=== PATIENT | female | born 1965 | race American Indian/Alaskan Native ===

== ENCOUNTER 2018-02-06 10:16 | Emergency (ER) | payer SELFPAY ==
[2018-02-06 10:28] VITALS: BP 163/80
[2018-02-06] MEDS ORDERED: ULTRAM PO ONE (12:01)
--- NOTE | 2018-02-06 12:07 | Emergency Department Report ---
ED Extremity Problem HPI - General Chief complaint: Extremity Injury, Lower Stated complaint: LT LEG PAIN Time Seen by Provider: 02/06/18 11:21 Source: patient Mode of arrival: Ambulatory Limitations: Physical Limitation - History of Present Illness Initial comments: 52-year-old female with recent CVA last month presents with left leg pain. States she has been experiencing pain in left thigh and lower leg since her stroke 4 weeks ago. Patient reports left-sided weakness and numbness secondary to her stroke. States pain and leg is sharp, intermittent. Pain is worse with ambulation, movement of extremities. No swelling. Patient reports that followed up with anyone on an outpatient basis since her stroke last month. MD Complaint: extremity pain -: month(s) (1) Location: left, lower extremity History of Same: No Radiation: none Quality: sharp Consistency: intermittent Improves with: rest Worsens with: weight bearing, palpation, other (movement) Associated Symptoms: denies: chest pain, shortness of breath - Related Data Home Medications Medication Instructions Recorded Confirmed Last Taken Baclofen [Lioresal] 10 mg PO QDAY 12/26/17 12/26/17 Unknown Fenofibrate 160 mg PO QDAY 12/26/17 12/26/17 Unknown Gabapentin [Neurontin] 300 mg PO QDAY 12/26/17 12/26/17 Unknown Naproxen [Naprosyn] 500 mg PO QDAY PRN 12/26/17 12/26/17 Unknown Gera/Polymyx B/Dexam Ophth Susp 1 drop OTIC BID 12/26/17 12/26/17 Unknown [Maxitrol Susp 3.5mg/23166simvp/0.1%] Ponatinib HCl [Iclusig] 15 mg PO QDAY 12/26/17 12/26/17 Unknown diphenhydrAMINE [Benadryl CAP] 50 mg PO HS 12/26/17 12/26/17 Unknown Previous Rx's Medication Instructions Recorded Last Taken Type Amlodipine Besylate [Norvasc] 10 mg PO QDAY #30 tablet 12/26/17 Unknown Rx Aspirin [Adult Aspirin] 81 mg PO QDAY #30 tablet. 12/26/17 Unknown Rx Clopidogrel [Plavix] 75 mg PO QDAY #30 tablet 12/26/17 Unknown Rx Simvastatin [Zocor TAB] 40 mg PO QHS #30 tablet 12/26/17 Unknown Rx Valsartan [Diovan] 160 mg PO BID #60 tablet 12/26/17 Unknown Rx Allergies Allergy/AdvReac Type Severity Reaction Status Date / Time No Known Allergies Allergy Verified 02/06/18 10:23 ED Review of Systems ROS: Stated complaint: LT LEG PAIN Other details as noted in HPI Constitutional: denies: fever Cardiovascular: denies: chest pain Musculoskeletal: as per HPI, other (denies leg swelling) ED Past Medical Hx - Past Medical History Hx Hypertension: Yes Hx CVA: Yes (dec 29) Hx Diabetes: Yes Additional medical history: leukemia - Surgical History Past Surgical History?: No - Social History Smoking Status: Never Smoker Substance Use Type: None - Medications Home Medications: Home Medications Medication Instructions Recorded Confirmed Last Taken Type Amlodipine Besylate [Norvasc] 10 mg PO QDAY #30 tablet 12/26/17 Unknown Rx Aspirin [Adult Aspirin] 81 mg PO QDAY #30 tablet. 12/26/17 Unknown Rx Baclofen [Lioresal] 10 mg PO QDAY 12/26/17 12/26/17 Unknown History Clopidogrel [Plavix] 75 mg PO QDAY #30 tablet 12/26/17 Unknown Rx Fenofibrate 160 mg PO QDAY 12/26/17 12/26/17 Unknown History Gabapentin [Neurontin] 300 mg PO QDAY 12/26/17 12/26/17 Unknown History Naproxen [Naprosyn] 500 mg PO QDAY PRN 12/26/17 12/26/17 Unknown History Gera/Polymyx B/Dexam Ophth Susp 1 drop OTIC BID 12/26/17 12/26/17 Unknown History [Maxitrol Susp 3.5mg/71393wyoln/0.1%] Ponatinib HCl [Iclusig] 15 mg PO QDAY 12/26/17 12/26/17 Unknown History Simvastatin [Zocor TAB] 40 mg PO QHS #30 tablet 12/26/17 Unknown Rx Valsartan [Diovan] 160 mg PO BID #60 tablet 12/26/17 Unknown Rx diphenhydrAMINE [Benadryl CAP] 50 mg PO HS 12/26/17 12/26/17 Unknown History ED Physical Exam - General Limitations: Physical Limitation General appearance: alert, in no apparent distress - Head Head exam: Present: atraumatic, normocephalic - Eye Eye exam: Present: normal appearance - ENT ENT exam: Present: mucous membranes moist - Respiratory Respiratory exam: Present: normal lung sounds bilaterally. Absent: respiratory distress - Cardiovascular Cardiovascular Exam: Present: regular rate, normal rhythm - GI/Abdominal GI/Abdominal exam: Present: soft. Absent: distended - Extremities Exam Extremities exam: Present: other (moderate tenderness to left thigh, minimal tenderness to left lower leg; no edema or swelling noted; cap refill nml; DP pulse palpable and normal; foot/toes are warm) - Neurological Exam Neurological exam: Present: alert, oriented X3, motor sensory deficit (baseline left sided deficits) - Psychiatric Psychiatric exam: Present: normal affect, normal mood - Skin Skin exam: Present: warm, dry, intact, normal color ED Course Vital Signs 02/06/18 10:25 Temperature 98.7 F Pulse Rate 98 H Respiratory 22 Rate Blood Pressure 163/80 O2 Sat by Pulse 96 Oximetry - Reevaluation(s) Reevaluation #1: 02/06/18 13:13 Spoke w/ automotive service technician, Raj. Study negative for DVT. ED Medical Decision Making - Radiology Data Radiology results: report reviewed - Medical Decision Making 52-year-old female with left leg pain following a stroke last month. Patient has deficits on the left side. Is likely experiencing neuropathic pain. Venous Doppler ultrasound negative for DVT. Patient to follow up as outpatient. Prescription given for Ultram. - Differential Diagnosis DVT, neuropathy Critical care attestation.: If time is entered above; I have spent that time in minutes in the direct care of this critically ill patient, excluding procedure time. ED Disposition Clinical Impression: Neuropathy Disposition: DC-01 TO HOME OR SELFCARE Is pt being admited?: No Condition: Stable Instructions: Peripheral Neuropathy (ED) Referrals: GIANFRANCO JAIME [Other] - 3-5 Days [facility] [Provider Group] - 3-5 Days Time of Disposition: 13:13
== END 2018-02-06 13:35 | disposition home or self-care (01) ==
LOC: ED 10:16
DX: E11.40 Type 2 diabetes mellitus with diabetic neuropathy, unspecified (principal); I10 Essential (primary) hypertension; Z86.73 Personal history of transient ischemic attack (TIA), and cerebral infarction without residual deficits; Z79.899 Other long term (current) drug therapy

== ENCOUNTER 2018-06-30 11:18 | Emergency (ER) | payer OTHER, SELFPAY ==
[2018-06-30 11:45] VITALS: BP 157/78
--- NOTE | 2018-06-30 11:45 | Emergency Department Report ---
Blank Doc - Documentation Documentation: This is a 52-year-old female that presents with bilateral knee pains s/p fall. Patient stated that her knees gives out after previous stroke. Deneis any stroke symptoms. Exam: normal neuro exam. No facial drooping. no one sided weakness. This initial assessment/diagnostic orders/clinical plan/treatment(s) is/are subject to change based on patient's health status, clinical progression and re- assessment by fellow clinical providers in the ED. Further treatment and workup at subsequent clinical providers discretion. Patient/guardians urged not to elope from the ED as their condition may be serious if not clinically assessed and managed. Initial orders include: 1- Patient sent to [facility] for further evaluation and treatment 2- xray
[2018-06-30] MEDS ORDERED: ZOFRAN IV ONE (13:43)
[2018-06-30] MEDS ORDERED: PEPCID IV ONE (13:43)
[2018-06-30] MEDS ORDERED: NACL 0.9% 1000 ML 1,000 ML IV ONE (13:43)
--- NOTE | 2018-06-30 13:50 | XRay Report ---
BILATERAL KNEES, 3 VIEWS History: Bilateral knee pain after fall. Findings: There is normal bone mineralization. No evidence for fracture, significant joint pathology or joint effusion. No bone lesion. Impression: Unremarkable bilateral knees.
[2018-06-30 15:10] LABS: BUN/Creatinine Ratio 20; Basophils # (Auto) 0.1 K/mm3 (0.0-0.1); Basophils % (Auto) 0.6 % (0.0-1.8); Blood Urea Nitrogen 10 mg/dL (7-17); Calcium 9.5 mg/dL (8.4-10.2); Eosinophils # (Auto) 0.1 K/mm3 (0.0-0.4); Eosinophils % (Auto) 1.1 % (0.0-4.3); Hematocrit 41.1 % (30.3-42.9); Hemoglobin 13.9 gm/dl (10.1-14.3); Hemolysis Index 7; Lymphocytes # (Auto) 1.4 K/mm3 (1.2-5.4); Lymphocytes % (Auto) 13.4 % (13.4-35.0); Mean Corpuscular HGB Conc 34 % (30-34); Mean Corpuscular Volume 80 fl (79-97); Monocytes # (Auto) 0.5 K/mm3 (0.0-0.8); Monocytes % (Auto) 4.8 % (0.0-7.3); Platelet Count 176 K/mm3 (140-440); Red Blood Count 5.13 M/mm3 (3.65-5.03); Red Cell Distribution Width 14.4 % (13.2-15.2)
--- NOTE | 2018-06-30 15:10 | XRay Report ---
AP ABDOMEN: HISTORY: Nausea and vomiting without BM in days. The abdominal gas pattern is unremarkable. No masses or organomegaly is identified and there is no gross evidence of free air or fluid. No significant soft tissue calcifications are noted. IMPRESSION: Unremarkable abdomen.
--- NOTE | 2018-06-30 16:31 | Emergency Department Report ---
ED General Adult HPI - General Chief complaint: Fall Stated complaint: FALL INJURY/KNEE PAIN Time Seen by Provider: 06/30/18 11:42 Source: patient Mode of arrival: Ambulatory Limitations: No Limitations - History of Present Illness Initial comments: Patient is a 52-year-old female who is presenting status post fall. Patient has a history of CVA and walks with a walker. Patient also has a past medical history diabetes and hypertension. Patient states that 2 days ago she began to have some nausea and vomiting. Patient states she has not had a bowel movement in several days as well. Patient has not been able to eat. Patient states she was walking to the bathroom today and was with without oral walker and her legs gave out. Patient states she felt dizzy at the time felt as though she'll pass out however she did not lose consciousness. Patient is denying any chest pain shortness of breath fevers chills nausea vomiting cur rently or focal neurological deficit. - Related Data Home Medications Medication Instructions Recorded Confirmed Last Taken Baclofen [Lioresal] 10 mg PO QDAY 12/26/17 12/26/17 Unknown Fenofibrate 160 mg PO QDAY 12/26/17 12/26/17 Unknown Gabapentin [Neurontin] 300 mg PO QDAY 12/26/17 12/26/17 Unknown Naproxen [Naprosyn] 500 mg PO QDAY PRN 12/26/17 12/26/17 Unknown Gera/Polymyx B/Dexam Ophth Susp 1 drop OTIC BID 12/26/17 12/26/17 Unknown [Maxitrol Susp 3.5mg/96707vwbcz/0.1%] Ponatinib HCl [Iclusig] 15 mg PO QDAY 12/26/17 12/26/17 Unknown diphenhydrAMINE [Benadryl CAP] 50 mg PO HS 12/26/17 12/26/17 Unknown Previous Rx's Medication Instructions Recorded Last Taken Type Amlodipine Besylate [Norvasc] 10 mg PO QDAY #30 tablet 12/26/17 Unknown Rx Aspirin [Adult Aspirin] 81 mg PO QDAY #30 tablet. 12/26/17 Unknown Rx Clopidogrel [Plavix] 75 mg PO QDAY #30 tablet 12/26/17 Unknown Rx Simvastatin [Zocor TAB] 40 mg PO QHS #30 tablet 12/26/17 Unknown Rx Valsartan [Diovan] 160 mg PO BID #60 tablet 12/26/17 Unknown Rx Allergies Allergy/AdvReac Type Severity Reaction Status Date / Time No Known Allergies Allergy Verified 02/06/18 10:23 ED Review of Systems ROS: Stated complaint: FALL INJURY/KNEE PAIN Other details as noted in HPI Comment: All other systems reviewed and negative ED Past Medical Hx - Past Medical History Previous Medical History?: Yes Hx Hypertension: Yes Hx CVA: Yes (dec 29) Hx Diabetes: Yes Additional medical history: leukemia - Surgical History Past Surgical History?: No - Social History Smoking Status: Unknown if ever smoked Substance Use Type: None - Medications Home Medications: Home Medications Medication Instructions Recorded Confirmed Last Taken Type Amlodipine Besylate [Norvasc] 10 mg PO QDAY #30 tablet 12/26/17 Unknown Rx Aspirin [Adult Aspirin] 81 mg PO QDAY #30 tablet. 12/26/17 Unknown Rx Baclofen [Lioresal] 10 mg PO QDAY 12/26/17 12/26/17 Unknown History Clopidogrel [Plavix] 75 mg PO QDAY #30 tablet 12/26/17 Unknown Rx Fenofibrate 160 mg PO QDAY 12/26/17 12/26/17 Unknown History Gabapentin [Neurontin] 300 mg PO QDAY 12/26/17 12/26/17 Unknown History Naproxen [Naprosyn] 500 mg PO QDAY PRN 12/26/17 12/26/17 Unknown History Gera/Polymyx B/Dexam Ophth Susp 1 drop OTIC BID 12/26/17 12/26/17 Unknown History [Maxitrol Susp 3.5mg/82466vkrih/0.1%] Ponatinib HCl [Iclusig] 15 mg PO QDAY 12/26/17 12/26/17 Unknown History Simvastatin [Zocor TAB] 40 mg PO QHS #30 tablet 12/26/17 Unknown Rx Valsartan [Diovan] 160 mg PO BID #60 tablet 12/26/17 Unknown Rx diphenhydrAMINE [Benadryl CAP] 50 mg PO HS 12/26/17 12/26/17 Unknown History ED Physical Exam - General Limitations: No Limitations General appearance: alert, in no apparent distress - Head Head exam: Present: atraumatic, normocephalic - Eye Eye exam: Present: normal appearance, PERRL, EOMI - ENT ENT exam: Present: mucous membranes dry. Absent: mucous membranes moist - Neck Neck exam: Present: normal inspection - Respiratory Respiratory exam: Present: normal lung sounds bilaterally. Absent: respiratory distress, wheezes, rales, rhonchi - Cardiovascular Cardiovascular Exam: Present: normal rhythm, tachycardia, normal heart sounds. Absent: systolic murmur, diastolic murmur, rubs, gallop - GI/Abdominal GI/Abdominal exam: Present: soft, normal bowel sounds. Absent: distended, tenderness, guarding, rebound, rigid - Extremities Exam Extremities exam: Present: normal inspection - Back Exam Back exam: Present: normal inspection - Neurological Exam Neurological exam: Present: alert, oriented X3 - Psychiatric Psychiatric exam: Present: normal affect, normal mood - Skin Skin exam: Present: warm, dry, intact, normal color. Absent: rash ED Course Vital Signs 06/30/18 11:42 Temperature 97.9 F Pulse Rate 107 H Respiratory 18 Rate Blood Pressure 157/78 O2 Sat by Pulse 98 Oximetry ED Medical Decision Making - Lab Data Result diagrams: 06/30/18 14:26 06/30/18 14:26 Lab Results 06/30/18 06/30/18 Range/Units 14:26 14:26 WBC 10.7 (4.5-11.0) K/mm3 RBC 5.13 H (3.65-5.03) M/mm3 Hgb 13.9 (10.1-14.3) gm/dl Hct 41.1 (30.3-42.9) % MCV 80 (79-97) fl MCH 27 L (28-32) pg MCHC 34 (30-34) % RDW 14.4 (13.2-15.2) % Plt Count 176 (140-440) K/mm3 Lymph % (Auto) 13.4 (13.4-35.0) % Bull[place] % (Auto) 4.8 (0.0-7.3) % Eos % (Auto) 1.1 (0.0-4.3) % Baso % (Auto) 0.6 (0.0-1.8) % Lymph # 1.4 (1.2-5.4) K/mm3 Bullitt # 0.5 (0.0-0.8) K/mm3 Eos # 0.1 (0.0-0.4) K/mm3 Baso # 0.1 (0.0-0.1) K/mm3 Seg Neutrophils % 80.1 H (40.0-70.0) % Seg Neutrophils # 8.6 H (1.8-7.7) K/mm3 Sodium 140 (137-145) mmol/L Potassium 4.3 (3.6-5.0) mmol/L Chloride 102.5 (98-107) mmol/L Carbon Dioxide 25 (22-30) mmol/L Anion Gap 17 mmol/L BUN 10 (7-17) mg/dL Creatinine 0.5 L (0.7-1.2) mg/dL Estimated GFR > 60 ml/min BUN/Creatinine Ratio 20 % Glucose 213 H (65-100) mg/dL Calcium 9.5 (8.4-10.2) mg/dL - Medical Decision Making Patient was hydrated and given nausea medicine patient actually states she does feel much improved. Patient be discharged home. Patient had x-ray of abdomen which ruled out obstructive process. Patient may have had a viral gastritis or some stomach irritation secondary to something that she Z. Critical care attestation.: If time is entered above; I have spent that time in minutes in the direct care of this critically ill patient, excluding procedure time. ED Disposition Clinical Impression: Dehydration Gastritis Qualifiers: Gastritis type: unspecified gastritis Chronicity: acute Gastritis bleeding: with bleeding Qualified Code(s): K29.01 - Acute gastritis with bleeding Disposition: TO HOME OR SELFCARE Is pt being admited?: No Does the pt Need Aspirin: No Condition: Stable Instructions: Dehydration (ED) Referrals: RENNY SINGER MD [Primary Care Provider] - 3-5 Days Time of Disposition: 16:30
== END 2018-06-30 16:51 | disposition home or self-care (01) ==
LOC: ED 11:18
DX: K29.01 Acute gastritis with bleeding (principal); E86.0 Dehydration; I10 Essential (primary) hypertension; E11.9 Type 2 diabetes mellitus without complications; Z86.73 Personal history of transient ischemic attack (TIA), and cerebral infarction without residual deficits; Z79.899 Other long term (current) drug therapy
CPT/HCPCS: 36415; 73562; 74018; 80048; 85025; 96361; 96374; 96375; 99284; J2405; J7030

== ENCOUNTER 2018-07-22 13:18 | Emergency (ER) | payer OTHER, SELFPAY ==
[2018-07-22 13:26] VITALS: BP 171/99
--- NOTE | 2018-07-22 13:31 | Emergency Department Report ---
Blank Doc - Documentation Documentation: 52 y o female with hx of DM on insulin, Stroke 2017 was sent here by PCP today for mouth numbness she was told to come to ED for MRI because she may ahve had a stroke july 12 She denies any sx today FAST exam negative labs ordered
[2018-07-22 14:24] LABS: Basophils % (Auto) 0.3 % (0.0-1.8); Eosinophils # (Auto) 0.2 K/mm3 (0.0-0.4); Eosinophils % (Auto) 2.2 % (0.0-4.3); Hematocrit 41.5 % (30.3-42.9); Hemoglobin 14.3 gm/dl (10.1-14.3); Lymphocytes # (Auto) 1.8 K/mm3 (1.2-5.4); Mean Corpuscular HGB Conc 34 % (30-34); Mean Corpuscular Volume 81 fl (79-97); Monocytes # (Auto) 0.7 K/mm3 (0.0-0.8); Monocytes % (Auto) 7.9 % (0.0-7.3); Platelet Count 139 K/mm3 (140-440); Red Blood Count 5.15 M/mm3 (3.65-5.03); Red Cell Distribution Width 14.9 % (13.2-15.2)
[2018-07-22 14:34] LABS: BUN/Creatinine Ratio 20; Blood Urea Nitrogen 12 mg/dL (7-17); Calcium 9.9 mg/dL (8.4-10.2); Hemolysis Index 7
--- NOTE | 2018-07-22 19:44 | Emergency Department Report ---
HPI - General Chief Complaint: Weakness Time Seen by Provider: 07/22/18 13:22 - HPI HPI: HPI Patient is a 52-year-old female that presents to the emergency room after being seen at the [facility] where she presented with numbness around her mouth. She states that it has been coming and going since 61 of this year. She also states that shes been having intermittent chest pain that radiates down her left arm. On admission the patients vital signs were stable blood pressure was 171/99 her heart rate was 94 and her oxygen saturation on room air was 99. She had no noted focal neuro deficit. She states that she has not noticed anything that makes her symptoms better or worse. Patient appears much older than stated age. Past medical history -CVA in December she was seen here and dc home after her ER visit because I dont have insurance. They told me I needed PT but I was never able to get it. She did follow up with [facility] who has placed her on her med regimen. -obesity -DM -HTN -HPLD -leukemia- details unknown -GERD Home medications Norvasc Asa Plavix Fenofibrate Guru Naproxen Eye drops Iclusig Zocor Diovan Pepcid Zofran insulin Past surgeries none Denies previous ND; she states she has had a stress test numerous years ago at [facility] Past Medical Hx - Past Medical History Previous Medical History?: Yes Hx Hypertension: Yes Hx CVA: Yes (dec 2017) Hx Heart Attack/AMI: No Hx Congestive Heart Failure: No Hx Diabetes: Yes Hx Deep Vein Thrombosis: No Hx Pulmonary Embolism: No Hx GERD: Yes Hx of Cancer: Yes Additional medical history: leukemia - Surgical History Past Surgical History?: No - Family History Family history: hypertension - Social History Smoking Status: Never Smoker Substance Use Type: None - Medications Home Medications: Home Medications Medication Instructions Recorded Confirmed Last Taken Type Amlodipine Besylate [Norvasc] 10 mg PO QDAY #30 tablet 12/26/17 Unknown Rx Aspirin [Adult Aspirin] 81 mg PO QDAY #30 tablet. 12/26/17 Unknown Rx Clopidogrel [Plavix] 75 mg PO QDAY #30 tablet 12/26/17 Unknown Rx Fenofibrate 160 mg PO QDAY 12/26/17 12/26/17 Unknown History Gabapentin [Neurontin] 300 mg PO QDAY 12/26/17 12/26/17 Unknown History Naproxen [Naprosyn] 500 mg PO QDAY PRN 12/26/17 12/26/17 Unknown History Gera/Polymyx B/Dexam Ophth Susp 1 drop OTIC BID 12/26/17 12/26/17 Unknown History [Maxitrol Susp 3.5mg/75731daieu/0.1%] Ponatinib HCl [Iclusig] 15 mg PO QDAY 12/26/17 12/26/17 Unknown History Simvastatin [Zocor TAB] 40 mg PO QHS #30 tablet 12/26/17 Unknown Rx Valsartan [Diovan] 160 mg PO BID #60 tablet 12/26/17 Unknown Rx diphenhydrAMINE [Benadryl CAP] 50 mg PO HS 12/26/17 12/26/17 Unknown History Famotidine [Pepcid] 40 mg PO QHS #10 tablet 06/30/18 Unknown Rx Ondansetron [Zofran Odt] 4 mg PO Q8HR #10 tab.rapdis 06/30/18 Unknown Rx ED Review of Systems ROS: Stated complaint: NUMBNESS/LEG WEAKNESS Other details as noted in HPI Comment: All other systems reviewed and negative Physical Exam - Physical Exam Vital Signs: Vital Signs 07/22/18 13:24 Temperature 98.2 F Pulse Rate 94 H Respiratory 18 Rate Blood Pressure 171/99 O2 Sat by Pulse 99 Oximetry Physical Exam: Physical exam WDWN patient in NAD. She is much older than stated age. VS per RN flow sheet Alert and oriented to person, place and time. She has no pronator drift. She is ambulatory with a rolling walker S1-S2. No S3 or S4. No systolic or diastolic murmur. No JVD. No pitting edema. Lungs clear to auscultation bilaterally anteriorly and posteriorly. Abdomen soft nontender bowel sounds X4 Moves all extremities well Mood and affect appropriate. ED Course Vital Signs 07/22/18 13:24 Temperature 98.2 F Pulse Rate 94 H Respiratory 18 Rate Blood Pressure 171/99 O2 Sat by Pulse 99 Oximetry - Reevaluation(s) Reevaluation #1: 07/23/18 01:15 see down time documentation Reevaluation #2: 07/23/18 01:40 DR STORY HAS EVALUATED PT AND SHE IS OK FOR DC WITH FOLLOW UP WITH CARDIOLOGY ED Medical Decision Making - Lab Data Result diagrams: 07/22/18 13:46 07/22/18 13:46 - EKG Data EKG shows normal: sinus rhythm - EKG Data Interpretation: no acute changes - Radiology Data Radiology results: report reviewed, image reviewed - Medical Decision Making Differential diagnosis Ro TIA; CVA; ACS Medical decision making Interventions Labs trop x 2 neg Serial 12 lead no STEMI Chest xray- Head CT- see report [id number] Story- he will see and evaluate the patient. Labs 07/22/18 07/22/18 13:46 13:46 WBC 8.9 RBC 5.15 H Hgb 14.3 Hct 41.5 MCV 81 MCH 28 MCHC 34 RDW 14.9 Plt Count 139 L Lymph % (Auto) 20.0 Grant % (Auto) 7.9 H Eos % (Auto) 2.2 Baso % (Auto) 0.3 Lymph # 1.8 Grant # 0.7 Eos # 0.2 Baso # 0.0 Seg Neutrophils % 69.6 Seg Neutrophils # 6.2 Sodium 142 Potassium 4.2 Chloride 103.1 Carbon Dioxide 25 Anion Gap 18 BUN 12 Creatinine 0.6 L Estimated GFR > 60 BUN/Creatinine Ratio 20 Glucose 126 H Calcium 9.9 Magnesium 1.80 Vital Signs 07/22/18 13:24 Temperature 98.2 F Pulse Rate 94 H Respiratory 18 Rate Blood Pressure 171/99 O2 Sat by Pulse 99 Oximetry - Differential Diagnosis RO CVA/TIA/ACS Critical care attestation.: If time is entered above; I have spent that time in minutes in the direct care of this critically ill patient, excluding procedure time. ED Disposition Clinical Impression: Chest pain Disposition: - TO HOME OR SELFCARE Is pt being admited?: No Does the pt Need Aspirin: No Condition: Stable Instructions: Costochondritis (ED) Additional Instructions: DIET TOLERATED MEDS ORDERED TODAY IN ER FOLLOW INSTRUCTIONS ON THE BOTTLE FOLLOW UP PCP WITHIN 48 HOURS TO ENSURE YOU ARE GETTING BETTER ACTIVITY TOLERATED MOTRIN OR TYLENOL FOR PAIN OR FEVER RETURN TO THE ER FOR WORSENING SYMPTOMS NOT RELIEVED BY YOUR MEDICATIONS. Referrals: RENNY SINGER MD [Primary Care Provider] - 3-5 Days FABIO NUNEZ MD [Staff Physician] - 3-5 Days ILDA POOLE MD [Staff Physician] - 3-5 Days Time of Disposition: 01:21
[2018-07-23] MEDS ORDERED: MAGNESIUM SULFATE 2GM/50ML 2 GM/50 ML BAG IV ONE (01:06)
--- NOTE | 2018-07-23 01:44 | XRay Report ---
PROCEDURE: XR CHEST ROUTINE 2V TECHNIQUE: PA and lateral chest radiographs were obtained. HISTORY: chest pain COMPARISONS: None. FINDINGS: Heart: Normal. Mediastinum/Vessels: Normal. Lungs/Pleural space: Normal. Bony thorax: No acute osseous abnormality. IMPRESSION: Normal examination. This document is electronically signed by Feroz Gan MD., July 23 2018 01:42:40 AM ET
--- NOTE | 2018-07-23 01:51 | Cat Scan Report ---
PROCEDURE: CT HEAD/BRAIN WO CON TECHNIQUE: Computerized tomography of the head was performed without contrast material. CT DOSE LENGTH PRODUCT: 920.5 mGycm HISTORY: face weak COMPARISONS: None . FINDINGS: Brain: There is no evidence of intracranial hemorrhage. No parenchymal hemorrhage is seen. No mass lesions or mass effect is identified. No abnormal extra-axial fluid collections or masses are seen. Well-defined areas of decreased density in the right thalamus, right and left basal ganglia and in th e periventricular white matter. Some of these are new since the prior study however the well-defined nature suggests these are mature. Multiple mature lacunar infarcts appear to be present. There is some decreased density seen in the periventricular white matter without mass effect. This i s fairly symmetric and does not exhibit any mass effect consistent with gliosis probably on the basis of microvascular disease or white matter changes of aging. Ventricles: The ventricles are normal size and are midline.. Bone Windows: No evidence of fracture. Paranasal sinuses: Visualized portions are clear. Mastoid air cells: Clear. IMPRESSION: Multiple mature lacunar infarcts appear to be visualized. Some of these lacunar infarcts appear to be new since the prior exam although now appear mature.. There are also appears to be mild gliosis. No other abnormalities are seen. If clinically indicated MRI of the brain could be obtained which may help to characterize the above-m entioned lacunar infarcts further.. This document is electronically signed by Bishop Garcia MD., July 22 2018 08:26:52 PM ET
[2018-07-23] MEDS ORDERED: MAG-OX PO STA (01:54)
--- NOTE | 2018-07-23 02:17 | Event Note ---
Date: 07/23/18 C/o L Chest pain 2 to 3 months Also numbness perioral O/e Chest wall tenderness present no focal deficits A/p Costochondritis F/u [facility]-- Dr Lopez
[2018-07-23 16:12] LABS: BUN/Creatinine Ratio 26; Blood Urea Nitrogen 13 mg/dL (7-17); Calcium 10.1 mg/dL (8.4-10.2); Hemolysis Index 10
== END 2018-07-23 01:50 | disposition home or self-care (01) ==
LOC: ED 13:18
DX: R07.89 Other chest pain (principal); R20.0 Anesthesia of skin; I10 Essential (primary) hypertension; E11.9 Type 2 diabetes mellitus without complications; K21.9 Gastro-esophageal reflux disease without esophagitis; Z86.73 Personal history of transient ischemic attack (TIA), and cerebral infarction without residual deficits; Z79.4 Long term (current) use of insulin
CPT/HCPCS: 36415; 70450; 71046; 80048; 83735; 84484; 85025; 93005; 93010

== ENCOUNTER 2020-07-19 14:06 | Emergency (ER) | payer MEDICARE ==
--- NOTE | 2020-07-19 16:17 | Event Note ---
ED Screening Note Date of service: 07/19/20 Time: 16:12 ED Screening Note: 54-year-old female with a past medical history of hypertension presents to the ER today with complaints of elevated blood sugar, nausea, vomiting, generalized weakness for 1 week. This initial assessment/diagnostic orders/clinical plan/treatment(s) is/are subject to change based on patients health status, clinical progression and re- assessment by fellow clinical providers in the ED. Further treatment and workup at subsequent clinical providers discretion. Patient/guardian urged not to elope from the ED as their condition may be serious if not clinically assessed and managed. Initial orders include: labs/ua/ekg/cxr
[2020-07-19 17:13] LABS: Amorphous Crystals,Urine Few; Bacteria,Urine 2+ /HPF (Negative); Bilirubin,Urine NEG (Negative); Blood,Urine LG (Negative); Color,Urine Yellow (Yellow); Mucus,Urine FEW /HPF; Urobilinogen,Urine < 2.0 mg/dL (<2.0)
[2020-07-19 17:23] LABS: Basophils # (Auto) 0.1 K/mm3 (0.0-0.1); Basophils % (Auto) 0.4 % (0.0-1.8); Eosinophils % (Auto) 0.1 % (0.0-4.3); Hematocrit 41.7 % (30.3-42.9); Hemoglobin 14.4 gm/dl (10.1-14.3); Lymphocytes # (Auto) 0.9 K/mm3 (1.2-5.4); Lymphocytes % (Auto) 4.8 % (13.4-35.0); Mean Corpuscular HGB Conc 34 % (30-34); Mean Corpuscular Volume 84 fl (79-97); Monocytes # (Auto) 1.4 K/mm3 (0.0-0.8); Monocytes % (Auto) 7.4 % (0.0-7.3); Platelet Count 168 K/mm3 (140-440); Red Cell Distribution Width 13.5 % (13.2-15.2)
--- NOTE | 2020-07-19 17:40 | XRay Report ---
XR chest routine 2V INDICATION / CLINICAL INFORMATION: Lightheadedness/Dizziness. COMPARISON: 07/23/2018 FINDINGS: SUPPORT DEVICES: None. HEART /PULMONARY VASCULATURE: No significant abnormality. LUNGS / PLEURA: No significant pulmonary or pleural abnormality. No pneumothorax. ADDITIONAL FINDINGS: No significant additional findings. IMPRESSION: 1. No acute findings. Signer Name: Joseluis Evans MD Signed: 07/19/2020 5:36 PM Workstation Name: [id number]
[2020-07-19 17:47] LABS: Creatine Kinase MB 11.9 ng/mL (0.0-4.0)
[2020-07-19 17:48] LABS: Albumin 4.3 g/dL (3.9-5); Calcium 9.9 mg/dL (8.4-10.2)
[2020-07-19 18:00] LABS: Chol/HDL Ratio 2.56 %
[2020-07-19] MEDS ORDERED: cefTRIAXone/NS 1 GM/50 ML 1 GM/50 ML BAG IV ONE ×2 (18:30→22:45)
[2020-07-19] MEDS ORDERED: SODIUM CHLORIDE 0.9% 1000 ML 1,000 ML IV ONE ×2 (18:30→21:19)
[2020-07-19] MEDS ORDERED: INSULIN REGULAR, HUMAN 100 UNITS/1 ML IV ONE ×3 (18:31→23:17)
--- NOTE | 2020-07-19 19:21 | Cat Scan Report ---
CT ABDOMEN PELVIS WITHOUT CONTRAST INDICATION / CLINICAL INFORMATION: ARF. TECHNIQUE: Axial CT images were obtained through the abdomen and pelvis without IV contrast. All CT scans at is location are performed using CT dose reduction for ALARA by means of automated exposure control. COMPARISON: None available. FINDINGS: LOWER CHEST: No significant abnormality. LIVER: No significant abnormality. GALLBLADDER: No significant abnormality. BILE DUCTS: No significant abnormality. PANCREAS: No significant abnormality. SPLEEN: No significant abnormality. ADRENALS: No significant abnormality. RIGHT KIDNEY and URETER: No significant abnormality. LEFT KIDNEY and URETER: No significant abnormality. STOMACH and SMALL BOWEL: No significant abnormality. COLON: Scattered diverticuli descending colon and sigmoid colon. Large amounts of feces present in th e rectum APPENDIX: No significant abnormality. PERITONEUM: No free fluid. No free air. No fluid collection. LYMPH NODES: No significant adenopathy. AORTA and ARTERIES: No significant abnormality. IVC and VEINS: No significant abnormality. URINARY BLADDER: No significant abnormality. REPRODUCTIVE ORGANS: Calcified uterine fibroids present. ADDITIONAL FINDINGS: None. SKELETAL SYSTEM: No significant abnormality. IMPRESSION: 1. No significant abnormality. Please see comments Signer Name: Shayan Cortés MD Signed: 07/19/2020 7:17 PM Workstation Name: [id number]
[2020-07-19 19:45] LABS: INR 1.05 (0.87-1.13)
[2020-07-19 19:46] LABS: Partial Thromboplastin Time 28.7 Sec. (24.2-36.6)
--- NOTE | 2020-07-19 20:34 | Emergency Department Report ---
HPI - General Chief Complaint: Hyperglycemia Time Seen by Provider: 07/19/20 19:47 - HPI HPI: 54-year-old female with complex medical history including hypertension, CAD, DM 2 on insulin, and CML presents complaining of 1 week of nausea and vomiting while trying to eat. She also says that over that period of time her blood sugars have been 400-5 100s. When asked further, she also reports that she has had a mild headache epigastric abdominal pain as well as bilateral lower extremity weakness to the point that she is unable to move them. She says this has been progressive over 1 week. She also reports that she has had bowel and bladder incontinence over that period of time. She denies any saddle anesthesia. She denies recent trauma. She denies any chest pain, shortness of breath, fever, visual change, cough, neck stiffness/pain, back pain, or any other complaints. ED Past Medical Hx - Past Medical History Previous Medical History?: Yes Hx Hypertension: Yes Hx CVA: Yes (dec 2017) Hx Heart Attack/AMI: No Hx Congestive Heart Failure: No Hx Diabetes: Yes Hx Deep Vein Thrombosis: No Hx Pulmonary Embolism: No Hx GERD: Yes Additional medical history: leukemia - Social History Smoking Status: Unknown if ever smoked - Medications Home Medications: Home Medications Medication Instructions Recorded Confirmed Last Taken Type Amlodipine Besylate [Norvasc] 10 mg PO QDAY #30 tablet 12/26/17 Unknown Rx Aspirin [Adult Aspirin] 81 mg PO QDAY #30 tablet. 12/26/17 Unknown Rx Clopidogrel [Plavix] 75 mg PO QDAY #30 tablet 12/26/17 Unknown Rx Fenofibrate 160 mg PO QDAY 12/26/17 12/26/17 Unknown History Gabapentin [Neurontin] 300 mg PO QDAY 12/26/17 12/26/17 Unknown History Naproxen [Naprosyn] 500 mg PO QDAY PRN 12/26/17 12/26/17 Unknown History Gera/Polymyx B/Dexam Ophth Susp 1 drop OTIC BID 12/26/17 12/26/17 Unknown History [Maxitrol Susp 3.5mg/[id number]/0.1%] Ponatinib HCl [Iclusig] 15 mg PO QDAY 12/26/17 12/26/17 Unknown History Simvastatin (NF) [Zocor TAB] 40 mg PO QHS #30 tablet 12/26/17 Unknown Rx Valsartan [Diovan] 160 mg PO BID #60 tablet 12/26/17 Unknown Rx diphenhydrAMINE [Benadryl CAP] 50 mg PO HS 12/26/17 12/26/17 Unknown History Famotidine [Pepcid] 40 mg PO QHS #10 tablet 06/30/18 Unknown Rx Ondansetron [Zofran Odt] 4 mg PO Q8HR #10 tab.rapdis 06/30/18 Unknown Rx ED Review of Systems ROS: Stated complaint: HIGH SUGAR/LEG WEAKNESS Other details as noted in HPI Constitutional: denies: chills, fever Eyes: denies: eye pain, vision change ENT: denies: throat pain, congestion Respiratory: denies: cough, shortness of breath Cardiovascular: denies: chest pain, palpitations Endocrine: increased thirst Gastrointestinal: abdominal pain, nausea, vomiting Genitourinary: frequency. denies: dysuria Musculoskeletal: denies: back pain Skin: denies: rash Neurological: headache, weakness, other (bowel/bladder incontinence). denies: numbness, paresthesias Physical Exam - Physical Exam Vital Signs: Vital Signs 07/19/20 07/19/20 14:43 15:06 Temperature 98.0 F 98.2 F Pulse Rate 102 H 100 H Respiratory 18 20 Rate Blood Pressure 150/79 146/74 [Right] O2 Sat by Pulse 99 99 Oximetry Physical Exam: GENERAL: Well developed and well nourished. No acute distress HEENT: Normocephalic. No obvious signs of trauma. Dry mucous membranes. EYES: Extraocular movements are intact. Pupils are equal round and reactive to light bilaterally NECK: Supple. Trachea is midline. LUNGS: Nonlabored breathing. Equal chest rise bilaterally. Clear to auscultation bilaterally. HEART/CARDIOVASCULAR: Regular rate and rhythm. No murmurs or rubs. VASCULAR: 2+ peripheral pulses. Cap refill < 2 seconds ABDOMEN: Abdomen is soft and nondistended. There is minimal tenderness of the e pigastrium without guarding or rebound. RECTAL: Significantly decreased rectal tone noted with stool in the rectal vault. SKIN: Skin is warm and dry NEURO: Patient is awake, alert, and oriented. russian rubber II-XII grossly intact. Normal sensory exam throughout. Upper extremities have normal function. Bilateral lower extremities are weak with effort against gravity only. Normal speech. MUSCULOSKELETAL: No obvious deformities. No significant tenderness. Normal ROM throughout. BACK/SPINE: No midline tenderness or step-offs of the C/T/L spine. No costovertebral angle tenderness. ED Course Vital Signs 07/19/20 07/19/20 14:43 15:06 Temperature 98.0 F 98.2 F Pulse Rate 102 H 100 H Respiratory 18 20 Rate Blood Pressure 150/79 146/74 [Right] O2 Sat by Pulse 99 99 Oximetry - EJ/Peripheral Line Neck L Indications: nurses unable to establis Skin Cleansed in Sterile Fashion: Yes Size: 20 Patient Tolerated Procedure: no complications ED Medical Decision Making - Lab Data Result diagrams: 07/19/20 17:05 07/19/20 17:05 Laboratory Results - last 24 hr 07/19/20 07/19/20 07/19/20 16:50 17:05 17:05 WBC 19.2 H RBC 5.00 Hgb 14.4 H Hct 41.7 MCV 84 MCH 29 MCHC 34 RDW 13.5 Plt Count 168 Lymph % (Auto) 4.8 L [place] % (Auto) 7.4 H Eos % (Auto) 0.1 Baso % (Auto) 0.4 Lymph # (Auto) 0.9 L [place] # (Auto) 1.4 H Eos # (Auto) 0.0 Baso # (Auto) 0.1 Seg Neutrophils % 87.3 H Seg Neutrophils # 16.8 H PT INR APTT VBG pH Sodium 129 L Potassium 3.4 L Chloride 84.5 L Carbon Dioxide 20 L Anion Gap 28 BUN 56 H Creatinine 4.7 H Estimated GFR 12 BUN/Creatinine Ratio 11 Glucose 510 H* Ketones Quantitative Calcium 9.9 Phosphorus Magnesium 2.80 H Total Bilirubin 0.70 AST 41 H ALT 40 Alkaline Phosphatase 215 H Total Creatine Kinase 740 H CK-MB (CK-2) 11.9 H CK-MB (CK-2) Rel Index 1.6 Troponin T 0.047 H NT-Pro-B Natriuret Pep Total Protein 8.5 H Albumin 4.3 Albumin/Globulin Ratio 1.0 Triglycerides 183 H Cholesterol 131 LDL Cholesterol Direct 50 HDL Cholesterol 51 Cholesterol/HDL Ratio 2.56 Urine Color Yellow Urine Turbidity Cloudy Urine pH 5.0 Ur Specific Twilight 1.015 Urine Protein 100 mg/dl Urine Glucose (UA) >=500 Urine Ketones Tr Urine Blood Lg Urine Nitrite Neg Urine Bilirubin Neg Urine Urobilinogen < 2.0 Ur Leukocyte Esterase Tr Urine WBC (Auto) 14.0 H Urine RBC (Auto) 8.0 U Epithel Cells (Auto) 18.0 H Urine Bacteria (Auto) 2+ Amorphous Crystals Few Urine Mucus Few Urine Yeast (Budding) Few 07/19/20 07/19/20 07/19/20 19:06 19:06 19:06 WBC RBC Hgb Hct MCV MCH MCHC RDW Plt Count Lymph % (Auto) [place] % (Auto) Eos % (Auto) Baso % (Auto) Lymph # (Auto) [place] # (Auto) Eos # (Auto) Baso # (Auto) Seg Neutrophils % Seg Neutrophils # PT 14.2 INR 1.05 APTT 28.7 VBG pH Sodium Potassium Chloride Carbon Dioxide Anion Gap BUN Creatinine Estimated GFR BUN/Creatinine Ratio Glucose Ketones Quantitative Small Calcium Phosphorus 4.00 Magnesium Total Bilirubin AST ALT Alkaline Phosphatase Total Creatine Kinase CK-MB (CK-2) CK-MB (CK-2) Rel Index Troponin T NT-Pro-B Natriuret Pep 2580 H Total Protein Albumin Albumin/Globulin Ratio Triglycerides Cholesterol LDL Cholesterol Direct HDL Cholesterol Cholesterol/HDL Ratio Urine Color Urine Turbidity Urine pH Ur Specific Twilight Urine Protein Urine Glucose (UA) Urine Ketones Urine Blood Urine Nitrite Urine Bilirubin Urine Urobilinogen Ur Leukocyte Esterase Urine WBC (Auto) Urine RBC (Auto) U Epithel Cells (Auto) Urine Bacteria (Auto) Amorphous Crystals Urine Mucus Urine Yeast (Budding) 07/19/20 19:06 WBC RBC Hgb Hct MCV MCH MCHC RDW Plt Count Lymph % (Auto) [place] % (Auto) Eos % (Auto) Baso % (Auto) Lymph # (Auto) [place] # (Auto) Eos # (Auto) Baso # (Auto) Seg Neutrophils % Seg Neutrophils # PT INR APTT VBG pH 7.316 L Sodium Potassium Chloride Carbon Dioxide Anion Gap BUN Creatinine Estimated GFR BUN/Creatinine Ratio Glucose Ketones Quantitative Calcium Phosphorus Magnesium Total Bilirubin AST ALT Alkaline Phosphatase Total Creatine Kinase CK-MB (CK-2) CK-MB (CK-2) Rel Index Troponin T NT-Pro-B Natriuret Pep Total Protein Albumin Albumin/Globulin Ratio Triglycerides Cholesterol LDL Cholesterol Direct HDL Cholesterol Cholesterol/HDL Ratio Urine Color Urine Turbidity Urine pH Ur Specific Twilight Urine Protein Urine Glucose (UA) Urine Ketones Urine Blood Urine Nitrite Urine Bilirubin Urine Urobilinogen Ur Leukocyte Esterase Urine WBC (Auto) Urine RBC (Auto) U Epithel Cells (Auto) Urine Bacteria (Auto) Amorphous Crystals Urine Mucus Urine Yeast (Budding) - EKG Data -: EKG Interpreted by Pa - EKG Data 07/19/20 21:34 Normal sinus rhythm. Normal axis. Normal intervals. No significant ST segment or T wave abnormalities. - Radiology Data CT ABDOMEN PELVIS WITHOUT CONTRAST INDICATION / CLINICAL INFORMATION: ARF. TECHNIQUE: Axial CT images were obtained through the abdomen and pelvis without IV contrast. All CT scans at this location are performed using CT dose reduction for ALARA by means of automated exposure control. COMPARISON: None available. FINDINGS: LOWER CHEST: No significant abnormality. LIVER: No significant abnormality. GALLBLADDER: No significant abnormality. BILE DUCTS: No significant abnormality. PANCREAS: No significant abnormality. SPLEEN: No significant abno rmality. ADRENALS: No significant abnormality. RIGHT KIDNEY and URETER: No significant abnormality. LEFT KIDNEY and URETER: No significant abnormality. STOMACH and SMALL BOWEL: No significant abnormality. COLON: Scattered diverticuli descending colon and sigmoid colon. Large amounts of feces present in the rectum APPENDIX: No significant abnormality. PERITONEUM: No free fluid. No free air. No fluid collection. LYMPH NODES: No significant adenopathy. AORTA and ARTERIES: No significant abnormality. IVC and VEINS: No significant abnormality. URINARY BLADDER: No significant abnormality. REPRODUCTIVE ORGANS: Calcified uterine fibroids present. ADDITIONAL FINDINGS: None. SKELETAL SYSTEM: No significant abnormality. IMPRESSION: 1. No significant abnormality. Please see comments Signer Name: Shayan Cortés MD Signed: 07/19/2020 6:17 PM Workstation Name: [id number] XR chest routine 2V INDICATION / CLINICAL INFORMATION: Lightheadedness/Dizziness. COMPARISON: 07/23/2018 FINDINGS: SUPPORT DEVICES: None. HEART /PULMONARY VASCULATURE: No significant abnormality. LUNGS / PLEURA: No significant pulmonary or pleural abnormality. No pneumothorax. ADDITIONAL FINDINGS: No significant additional findings. IMPRESSION: 1. No acute findings. Signer Name: Joseluis Evans MD Signed: 07/19/2020 4:36 PM Workstation Name: [id number] - Medical Decision Making 54-year-old male with complex medical history including history of hypertension, CAD, DM 2, and CML presenting with approximately 1 week of nausea and vomiting and elevated blood sugars. Patient has also had progressive lower extremity weakness and on further questioning admits to both bowel and bladder incontinence. Labs were drawn in triage and reveal several significant abnormalities. The patient is noted to have several lab abnormalities including elevated white blood cell count of 19.2, sodium of 129, potassium of 3.4, bicarbonate of 20, and creatinine of 4.7 from her baseline of 0.5. Her glucose is elevated at 510. This qualifies as acute renal failure with hyperglycemia. The venous pH is 7.316, which does not qualify as DKA. Full sepsis orders were initiated including labs and cultures. She was administered IV ceftriaxone. She will be administered 30 mL/kg based on her ideal body weight of 50 kg. 10 units of IV insulin ordered. Given her bowel/bladder incontinence, lower extremity weakness, and decreased rectal tone, I am concerned that the patient may have cauda equina syndrome or some other neurologic emergency which may require neurosurgery. I feel that she requires an MRI of the thoracic/lumbar spine emergently which cannot be performed here. I will therefore try to arrange for transfer to [place] At 9:30 PM I spoke with Dr. Hudson, neuro experimental psychologist at [place] as well as Dr. Trent Galvan of neurosurgery regarding the case and the need for transfer to [facility] emergent MRI. Patient is accepted for transfer. Critical Care Time: Yes (35) Critical care time in (mins) excluding proc time.: 35 Critical care attestation.: If time is entered above; I have spent that time in minutes in the direct care of this critically ill patient, excluding procedure time. Critical care time was spent in the assessment and management of acute renal failure and hyperglycemia requiring IV insulin and fluid resuscitation as well as emergent neurologic condition requiring transport for emergent MRI to be performed as soon as possible. ED Disposition Clinical Impression: Acute renal failure, Hyperglycemia, Lower extremity weakness, Bowel incontinence, Bladder incontinence, Cauda equina syndrome Disposition: DC/TX-70 ANOTHER TYPE HLTHCARE Is pt being admited?: No Condition: Serious Referrals: PRIMARY CARE, [Primary Care Provider] - 3-5 Days
[2020-07-19] MEDS ORDERED: POTASSIUM CHLORIDE 10 MEQ 10 MEQ/100 ML BAG IV SCH (22:00)
[2020-07-19] MEDS ORDERED: POTASSIUM CHLORIDE 20 MEQ 20 MEQ/100 ML BAG IV SCH (22:00)
[2020-07-20 02:01] VITALS: BP 148/47
== END 2020-07-20 | disposition other institution (70) ==
LOC: ED 14:06
DX: N17.9 Acute kidney failure, unspecified (principal); E11.65 Type 2 diabetes mellitus with hyperglycemia; G83.4 Cauda equina syndrome; R15.9 Full incontinence of feces; R39.81 Functional urinary incontinence; R53.1 Weakness; I10 Essential (primary) hypertension; K21.9 Gastro-esophageal reflux disease without esophagitis; Z86.73 Personal history of transient ischemic attack (TIA), and cerebral infarction without residual deficits; Z79.899 Other long term (current) drug therapy
CPT/HCPCS: 36415; 36556; 71046; 74176; 80053; 80061; 81001; 82010; 82550; 82553; 82805; 82962; 83735; 83880; 84100; 84484; 85025; 85610; 85730; 87040; 87086; 93005; 96361; 96374; 99291; J0696; J7030; J1815